=== PATIENT | male | born 1990 | race Hispanic/Latino ===

== ENCOUNTER 2023-02-12 09:05 | Emergency (ER) | payer OTHER, SELFPAY ==
[2023-02-12 09:08] VITALS: BP 140/82; PULSE 74; RESP 15; TEMP 37.3; O2SAT 98; BMI 30.4
[2023-02-12 09:29] LABS: Strep Grp A by PCR Rapid Negative (Negative)
[2023-02-12 09:37] LABS: COVID19 -Nasal RAPID Negative (Negative)
--- NOTE | 2023-02-12 09:42 | ED.GENADULT ---
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 He states he started to have a cough and somewhat of a sore throat and hoarse voice this morning. He denies any fevers. No problems breathing. Related Data Allergies Allergy/AdvReac Type Severity Reaction Status Date / Time No Known Drug Allergies Allergy Verified 02/12/23 09:08 Review of Systems ENT Ears, Nose, Mouth, and Throat: Reports system reviewed and no additional complaints, except as documented Respiratory Respiratory: Reports system reviewed and no additional complaints, except as documented Neurologic Neurologic: Reports system reviewed and no additional complaints, except as documented Patient History Social History Smoking Status: Unknown if ever smoked Smoking Status: Unknown if ever smoked alcohol intake frequency: holidays/special occasions only Substance Use Type: does not use Exam Initial Vital Signs Initial Vital Signs: Vital Signs Temperature 99.2 F 02/12/23 09:08 Pulse Rate 74 02/12/23 09:08 Respiratory Rate 15 02/12/23 09:08 Blood Pressure 140/82 02/12/23 09:08 Pulse Oximetry 98 02/12/23 09:08 Oxygen Delivery Method Room Air 02/12/23 09:08 HENMT Head: normal to inspection Mouth: moist mucous membranes Resp Effort & Inspection: normal respiratory effort Auscultation: clear to auscultation bilaterally Skin General: no rashes or lesions noted Course Orders Ordered: ED Orders 02/12/23 09:11 COVID19 -Nasal RAPID Stat Strep Grp A by PCR Rapid Stat 02/12/23 09:34 Throat Culture Stat Vital Signs Vital signs: Vital Signs - 8 hr 02/12/23 09:08 Temperature 99.2 F Pulse Rate 74 Respiratory Rate 15 Blood Pressure 140/82 Pulse Oximetry 98 Oxygen Delivery Method Room Air Medical Decision Making Lab Data Labs: Lab Results 02/12/23 Range/Units 09:11 SARS-CoV-2 (PCR) Negative (Negative) Group A Strep (PCR) Negative (Negative) MDM Narrative Medical decision making narrative: Patient is strep negative. A throat culture was pending. COVID was negative. There was no indication for antibiotics. I do suspect viral illness. Discussed return precautions and follow-up instructions. He expressed understanding and agreement. Discharge Plan Departure Patient Disposition: Home Clinical Impression: Upper respiratory infection Instructions: DI for Viral Upper Respiratory Infection -- Adult Activity Restrictions/Additional Instructions: Your strep test and COVID-19 test were negative. There was a throat culture that was pending that we will contact you if we need to start any antibiotics. Until then I do recommend that you still wear a mask as this is most likely a viral illness. You can take Tylenol for any fevers. Return to the emergency department for new symptoms. Referrals: Provider,Chiquis ZAPATA [Primary Care Provider] - Stand Alone Forms: Patient Portal/API
== END 2023-02-12 09:48 | disposition home or self-care (01) ==
PROVIDERS: Emergency Provider Emergency Medicine
DX: J06.9 Acute upper respiratory infection, unspecified (principal); Z20.822 Contact with and (suspected) exposure to COVID-19
CPT/HCPCS: 87070; 87635; 87651; 99281; 99282; C9803